=== PATIENT | female | born 1950 | race Caucasian/White ===

== ENCOUNTER → 2017-01-13 | Day surgery (SDC) | payer BC, OTHER ==
[2017-01-07 13:12] VITALS: Ht 171.5 cm; Wt 135.0 kg
[~2017-01-13] VITALS: Ht 171.5 cm; Wt 135.0 kg
[~2017-01-13] MED LIST: ASPCH81X PO; ATEN-171 PO; ATOR-24 PO; CALC-393 PO; GLC/500 PO; GLIM1TAB2 PO; GLUC1TAB94 PO; LEVO75TA PO; LIDOCAINE HCL 2% 2 ML VIAL (20MG/ML) ONE; MIDAZOLAM HCL 1 MG/ML 2ML VIAL ONE; MULT-1092 PO; ONDANSETRON INJ 2 MG/ML 2 ML VIAL ONE; PROPOFOL IV EMULSION 10 MG/ML 20 ML VIAL IV ONE; SODIUM CHLORIDE 0.9% 500ML 500 ML IV ONE; TURM1CAP2 PO; ZINC1TAB PO
--- NOTE | 2017-01-13 12:09 | Endo History and Physical ---
History & Physical Date of Service: Jan 13, 2017. Chief Complaint: FAMILY HX OF COLON CANCER Referring Physician: DR. FLOWER History of Present Illness patient with family hx of colon cancer Past Surgical History Hx Cardiac Surgery: No Hx Internal Defibrillator: No Hx Pacemaker: No Hx Abdominal Surgery: No Hx of Implantable Prosthesis: No Hx Post-Op Nausea and Vomiting: No Hx Cancer Surgery: No Hx Thoracic Surgery: No Hx Orthopedic: No Hx Urinary Tract Surgery: No Family History Colon CA Social History Hx Substance Use: No Hx Alcohol Use: No Allergies Coded Allergies: NO KNOWN DRUG ALLERGIES (Verified Allergy, Unknown, ., 01/13/17) Uncoded Allergies: CATS AND DOGS (Allergy, Unknown, TEARS IN EYES, 01/07/17) Current Medications Reported Home Medications Medications Dose Route/Sig Max Daily Dose Days Date Category Zinc (Zinc Gluconate) 50 Mg Tab 1 Tab PO DAILY 01/07/17 Reported Calcium (Calcium Carbonate) 600 Mg Tab 1 Tab PO DAILY 01/07/17 Reported Move Free Joint Health Ad (Hhptmaemedj-Szwduyftbli-Pozjzj) 1 Tab Tab 1 Tab PO BID 01/07/17 Reported Centrum Silver 50+Women (Multiple Vitamins W/ Minerals) 1 Tab Tab 1 Tab PO DAILY 01/07/17 Reported Turmeric (Turmeric (Curcuma Longa)) 450 Mg Cap 1 Cap PO DAILY 01/07/17 Reported Aspirin Chewable (Aspirin) 81 Mg Chew 81 Mg PO DAILY 01/07/17 Reported Glucophage (Metformin Hcl) 500 Mg Tab 2 Tab PO BID 01/07/17 Reported Lipitor (Atorvastatin Calcium) 40 Mg Tab 40 Mg PO QPM 01/07/17 Reported Glimepiride 1 Mg Tab 1 Tab PO QPM 01/07/17 Reported Tenoretic 50 Mg/25 Mg (Atenolol/Chlorthalidone) 50 Mg/25 Mg Tab 1 Tab PO QAM 01/07/17 Reported Synthroid (Levothyroxine Sodium) 75 Mcg Tab 75 Mcg PO QAM 01/07/17 Reported Vital Signs Weight (Kilograms): 135 Height (Feet): 5 Height (Inches): 7.5 Date Time Temp Pulse Resp B/P (MAP) Pulse Ox O2 Delivery O2 Flow Rate FiO2 01/13/17 11:51 36.4 50 16 152/78 (102) 96 Room Air Physical Exam General Appearance: no apparent distress Respiratory/Chest: Auscultation: breath sounds normal Cardiovascular: Heart Auscultation: RRR Abdomen: Inspection & Palpation: soft Liver: non-tender Assessment and Plan stable for colonoscopy
--- NOTE | 2017-01-13 12:55 | Discharge Instructions ---
Endoscopy Patient Instructions Date / Procedure(s) Performed Jan 13, 2017. Colonoscopy Allergy Information Coded Allergies: NO KNOWN DRUG ALLERGIES (Verified Allergy, Unknown, ., 01/13/17) Uncoded Allergies: CATS AND DOGS (Allergy, Unknown, TEARS IN EYES, 01/07/17) Discharge Date / Findings Jan 13, 2017. normal colonoscopy Medication Instructions Stopped Medication(s): ASPIRIN LAST 01/11/17 METFORM LAST 01/10/17 GLIMEPIRIDE LAST 01/09/17 Provider Instructions Activity Restrictions - No exercising or heavy lifting for 24 hours. - Do not drink alcohol the day of the procedure. - Do not drive a car or operate machinery until the day after the procedure. - Do not make any important decisions or sign important papers in 24 hours after the procedure. Following Day: - Return to full activity which may include returning to work/school. Diet Start your diet with liquids and light foods (jello, soup, juice, toast). Then eat your usual diet if not nauseated. Treatment For Common After Affects For mild abdominal pain, bloating, or excessive gas: - Rest - Eat lightly - Lie on right side Follow-Up Information Follow-up with DR. FLOWER as scheduled Anesthesia Information What You Should Know You have had a procedure that required some medicine to reduce anxiety and discomfort. This treatment is called moderate sedation. After receiving the treatment, you may be sleepy, but you will be able to breathe on your own. The effects of the treatment may last for several hours. Follow these instructions along with Activity/Diet recommendations noted above: * Do NOT do anything where dizziness or clumsiness would be dangerous. * Rest quietly at home today, then you can be up and about tomorrow. * Have a responsible person stay with you the rest of today. * You may have had an I.V. today. If so, you may take the dressing off later today. Recommendations Call your doctor if: * Trouble breathing * Continuous vomiting for more than 24 hours * Temperature above 101 degrees * Severe abdominal pain or bloating * Pain not relieved by pain medicine ordered * There is increased drainage or redness from any incision * A large amount of rectal bleeding greater than 2-3 tablespoons. (If you had a polyp/s removed or have hemorrhoids, a small amount of blood - from the rectum is to be expected.) * You have any unanswered questions or concerns. IN THE EVENT OF A SERIOUS EMERGENCY, GO TO THE NEAREST EMERGENCY ROOM Your discharge instructions were prepared by provider Philip Hernandez. Patient Instructions Signature Page Vidal Hong Patient (or Guardian) Signature/Date: I have read and understand the instructions given to me by my caregivers. Caregiver/RN/Doctor Signature/Date: The above-named patient and/or guardian has received patient instructions on this date. + Original Patient Signature Page (only) stays with chart. Please make copy for patient.
--- NOTE | 2017-01-13 12:57 | GI REPORT ---
Procedure Date: 01/13/2017 12:09 PM Procedure: Colonoscopy Indications: Family history of colon cancer in a first-degree relative Medicines: See the Anesthesia note for documentation of the administered medications Complications: No immediate complications. Estimated Blood Loss: Estimated blood loss: none. Procedure: Pre-Anesthesia Assessment: - Prior to the procedure, a History and Physical was performed, and patient medications, allergies and sensitivities were reviewed. The patient's tolerance of previous anesthesia was reviewed. - The risks and benefits of the procedure and the sedation options and risks were discussed with the patient. All questions were answered and informed consent was obtained. - Patient identification and proposed procedure were verified prior to the procedure by the physician and the nurse. The procedure was verified in the pre-procedure area. - Pre-procedure physical examination revealed no contraindications to sedation. - After reviewing the risks and benefits, the patient was deemed in satisfactory condition to undergo the procedure. After I obtained informed consent, the scope was passed under direct vision. Throughout the procedure, the patient's blood pressure, pulse, and oxygen saturations were monitored continuously. The scope was introduced through the anus and advanced to the terminal ileum, with identification of the appendiceal orifice and IC valve. The colonoscopy was performed without difficulty. The patient tolerated the procedure well. The quality of the bowel preparation was good. Findings: The perianal and digital rectal examinations were normal. The terminal ileum appeared normal. The entire examined colon appeared normal on direct and retroflexion views. Impression: - The examined portion of the ileum was normal. - The entire examined colon is normal on direct and retroflexion views. - No specimens collected. Recommendation: - Repeat colonoscopy in 5 years for screening purposes. - Discharge patient to home. Philip Hernandez M.D. Philip Hernandez MD 01/13/2017 12:56:52 PM This report has been signed electronically. Note Initiated On: 01/13/2017 12:09 PM I attest to the content of the Intraoperative Record and orders documented therein, exceptions below
--- NOTE | 2017-01-13 13:26 | Anesthesiology Progress Note ---
Anesthesia Post Op Note Date & Time Jan 13, 2017 at 13:25 Vital Signs Pain Intensity: 0 Vital Signs Past 12 Hours Date Time Temp Pulse Resp B/P (MAP) Pulse Ox O2 Delivery O2 Flow Rate FiO2 01/13/17 13:12 51 16 126/78 (94) 94 Room Air 01/13/17 12:57 54 16 110/65 (80) 94 Room Air 01/13/17 11:51 36.4 50 16 152/78 (102) 96 Room Air Notes Mental Status: alert / awake / arousable, participated in evaluation Pt Amnestic to Procedure: Yes Nausea / Vomiting: adequately controlled Pain: adequately controlled Airway Patency, RR, SpO2: stable & adequate BP & HR: stable & adequate Hydration State: stable & adequate Anesthetic Complications: no major complications apparent
[2017-01-13 13:28] VITALS: BP 128/71; PULSE 51; O2SAT 97
== END | disposition home or self-care (01) ==
LOC: C.GI 11:25
PROVIDERS: ATTEND Internal Medicine Gastroenterology
DX: Z12.11 Encounter for screening for malignant neoplasm of colon (principal); Z80.0 Family history of malignant neoplasm of digestive organs; Z79.82 Long term (current) use of aspirin; Z79.899 Other long term (current) drug therapy